=== PATIENT | male | born 1960 | race Caucasian/White ===

== ENCOUNTER 2018-02-16 16:25 | Outpatient (REF) | payer BC, SELFPAY ==
[2018-02-16 21:53] LABS: BUN 24 mg/dL (7-18); Chloride 102 mmol/L (98-107); Glucose 142 mg/dL (70-100); Potassium 4.2 mmol/L (3.5-5.1); Sodium 141 mmol/L (136-145)
[2018-02-16 22:01] LABS: COMMENT (LAB VIEW ONLY) 90.16 mg/dL; Microalb ug/mg Crea 9.5 ug/mg Cr
[2018-02-16 22:30] LABS: ALT 96 U/L (12-78); AST 44 U/L (15-37); Albumin 4.2 g/dL (3.4-5.0); Alkaline Phosphatase 94 U/L (46-116); Anion Gap 13.9 mmol/L (3-11); Bilirubin, Total 0.5 mg/dL (0.2-1.0); CO2 25.1 mmol/L (21.0-32.0); CREATININE 1.11 mg/dL (0.70-1.30); Cholesterol 176 mg/dL (50-200); HDL Cholesterol 49 mg/dL (40-60); LDL CHOLESTEROL 99 mg/dL (<100); Total Protein 7.2 g/dL (6.4-8.2); Triglyceride 188 mg/dL (30-150)
== END 2018-02-16 16:45 ==
LOC: NCHCN 16:25
PROVIDERS: PCP Family Medicine; Visit Provider Family Medicine
DX: I10 Essential (primary) hypertension (principal); E11.9 Type 2 diabetes mellitus without complications
CPT/HCPCS: 80053; 80061; 83721; 82043; 82570

== ENCOUNTER 2020-01-17 16:33 | Outpatient (REF) | payer OTHER, SELFPAY ==
[2020-01-17 18:57] LABS: ALT 53 U/L (16-63); AST 31 U/L (15-37); Albumin 4.2 g/dL (3.4-5.0); Alkaline Phosphatase 97 U/L (46-116); Anion Gap 7.9 mmol/L (3-11); BUN 20 mg/dL (7-18); Bilirubin, Total 0.8 mg/dL (0.2-1.0); CO2 30.1 mmol/L (21.0-32.0); CREATININE 1.25 mg/dL (0.70-1.30); Calcium 9.3 mg/dL (8.5-10.1); Calculated LDL 91 mg/dL (<100); Chloride 100 mmol/L (98-107); Cholesterol 203 mg/dL (<200); Estimated GFR 59.32 (mL/min/1.73m2); Glucose 114 mg/dL (74-106); HDL Cholesterol 50 mg/dL (40-60); Sodium 138 mmol/L (136-145); Total Protein 7.4 g/dL (6.4-8.2); Triglyceride 313 mg/dL (<150)
[2020-01-17 18:59] LABS: COMMENT (LAB VIEW ONLY) 166.02 mg/dL; Microalb ug/mg Crea 25.1 ug/mg Cr
== END 2020-01-17 16:53 ==
LOC: NCHCN 16:33
PROVIDERS: PCP Family Medicine; Visit Provider Family Medicine
DX: I10 Essential (primary) hypertension (principal); E11.9 Type 2 diabetes mellitus without complications; E78.5 Hyperlipidemia, unspecified
CPT/HCPCS: 80053; 80061; 82043; 82570

== ENCOUNTER 2020-08-28 17:30 | Outpatient (REF) | payer OTHER, SELFPAY ==
--- NOTE | 2020-08-28 09:45 | SKI_PTH ---
PATIENT: Masoud Harmon LOC: [facility] U#:[id number] AGE/SX: 59/M ROOM: RE08/28/[address]: Delia Murray : 1960 BED: DIS: 08/28/2020 SPEC #: [id number] RECD: 08/31/20 12:36 STATUS: ANIA RENoreen #: [id number] STEVEN: 08/28/20 09:[address]: Delia Murray DEPT: Surgical Specimen RECD BY: Enma Rehman Tissues: 1 - SKIN BIOPSY(SHAVE/PUNCH) Procedures: SKIN LEVEL 4 Comments: [id number]
== END 2020-08-28 17:31 | disposition home or self-care (01) ==
LOC: NCHCN 17:30
PROVIDERS: PCP Family Medicine; Visit Provider Family Medicine
DX: D22.5 Melanocytic nevi of trunk (principal)
CPT/HCPCS: 88305

== ENCOUNTER 2021-02-26 09:27 | Outpatient (REF) | payer OTHER, SELFPAY ==
--- OUTSIDE RECORDS SUMMARY | 2021-02-26 09:32 | XMS_ITS ---
:1960 Author Care Team Providers Name Role Phone DELIA CLARKE MD Primary Care Provider [phone] Allergies Code Code System Name Reaction Severity Status Onset NKDA ? Medications Name Status Start Date Stop Date ? ? amlodipine 10 mg tablet Active ? Not avai lable aspirin 81 mg tablet,delayed release Active ? Not available gabapentin 100 mg capsule Active ? Not av ailable TAKE 2 TO 3 CAPSULES BY MOUTH THREE NAZARIO ES DAILY NEEDED. START WITH 1 CAPSULE BUT. INCREASE TO 2-3 NEEDED lisinopril 20 mg-hydrochlorothiazide 12.5 Active ? Not available mg tablet omeprazole 20 mg capsule,delayed release Active ? Not available OneTouch Verio test strips Active ? Not a vailable prednisone 20 mg tablet Active ? Not avai lable TAKE 2 TABLETS BY MOUTH EVERY DAY TRUEplus Pen Needle 32 gauge x 5/32 Active ? Not available Notes: Pt also on CPAP for sleep apnea Pt states they prescribed trulicity ,but he cannot afford it. Problems Name Status Onset Date Source ? Type 2 Diabetes Mellitus Active 06/10/2019 ? Hyperlipidemia Active 06/10/2019 ? Tobacco User Active 06/10/2019 ? Essential Hypertension Active 06/10/2019 ? Psoriasis Active 06/10/2019 ? Sleep Apnea Active 06/10/2019 ? Procedures Date Name Performed by ? ? Hernia Repair Information not avai lable Results Lab Results Date Name Specimen Result Interpretation Description Value Range Status Address ? 06/10/2019 Urinalysis, UR ? UA-color pale pale Final [facility] Dipstick, yellow yellow Hospita l Lab [facility] (Int ernal): [address] ? ? UR ? UA-appear clear clear Final [facility] (Internal) : [address] ? ? UR ? UA-spec 1.010 1.003-1.03 Final [place] [address] [facility] L [facility] (Internal) : [address] ? ? UR ? UA-pH 6.5 [pH] 4.6-8.0 Final [facility] [pH] Hospital [facility] (Internal) : [address], [place] ? ? UR ? UA-leuk negative negative Final [facility] (Internal) : [address], [place] ? ? UR ? [facility]-nitrit [facility] [address], [place] ? ? UR ? UA-prot negative negative Final [facility] (Internal) : [address], [place] ? ? UR ? UA-gluc negative negative Final [facility] (Internal) : [address], [place] ? ? UR ? [facility]-ketone negative negative [facility] [address], [place] ? ? UR ? UA-urobil normal normal Final [facility] (Internal) : [address], [place] ? ? UR ? UA-bili negative negative Final [facility] (Internal) : [address], [place] ? ? UR ? UA-blood negative negative Final [facility] (Internal) : [address], [place] Past Encounters 02/01/2021 Lumbar Spondylosis; Low Back Pain; Muscl e Weakness; Abnormal Posture Delia Gonzalez, PT: [address] [place] [address], [facility] [address] [address], Ph. 01/01/2021 Lumbar Spondylosis; Low Back Pain; Muscl e Weakness; Abnormal Posture Delia Gonzalez, PT: [address] [facility], [facility] [address], [place] [address], Ph. Social History Tobacco Smoking Status Current Every Day Smoker Vaccine List Vaccine Type COVID-19, mRNA, LNP-S, PF, 100 mcg/0.5 m L dose 08/06/2020?100 mcg 09/03/2020?0.5 mL Plan of Care Reminders Provider Appointments None ? ? recorded. Lab None ? ? recorded. Referral None ? ? recorded. Procedures None ? ? recorded. Surgeries None ? ? recorded. Imaging None ? ? recorded. Vitals None recorded.
--- OUTSIDE RECORDS SUMMARY | 2021-02-26 09:32 | XMS_ITS | Encounter Summary ---
:1960 Author Care Team Providers Name Role Phone Delia Murray MD Primary Care Provider [phone] Reason for Visit low back pain Assessment and Plan 1. Lumbar spondylosis 2. Low back pain 3. Muscle weakness 4. Abnormal posture Discussion Note: None recorded.Patient educational handouts: No information available. Plan of Care Reminders Provider Appointments None ? ? recorded. Lab None ? ? recorded. Referral None ? ? recorded. Procedures None ? ? recorded. Surgeries None ? ? recorded. Imaging None ? ? recorded. Medications Name Start Date ? ? amlodipine 10 mg tablet ? aspirin 81 mg tablet,delayed release ? gabapentin 100 mg capsule ? TAKE 2 TO 3 CAPSULES BY MOUTH THREE NAZARIO ES DAILY NEEDED. START WITH 1 CAPSULE BUT. INCREASE TO 2-3 NEEDED lisinopril 20 mg-hydrochlorothiazide 12.5 mg tablet ? omeprazole 20 mg capsule,delayed release ? OneTouch Verio test strips ? prednisone 20 mg tablet ? TAKE 2 TABLETS BY MOUTH EVERY DAY TRUEplus Pen Needle 32 gauge x 5 ? Notes: Pt also on CPAP for sleep apnea Pt states they prescribed trulicity ,but he cannot afford it. Medications Administered None recorded. Vitals None recorded. Results Lab Results None recorded. Allergies Code Code System Name Reaction Severity Onset NKDA ? ? ? Problems Name Status Onset Date Source ? Type 2 Diabetes Mellitus Active 06/10/2019 ? Hyperlipidemia Active 06/10/2019 ? Tobacco User Active 06/10/2019 ? Essential Hypertension Active 06/10/2019 ? Psoriasis Active 06/10/2019 ? Sleep Apnea Active 06/10/2019 ? Procedures Date Name Performed by ? ? Hernia Repair Information not avai lable Vaccine List Vaccine Type COVID-19, mRNA, LNP-S, PF, 100 mcg/0.5 m L dose 08/06/2020?100 mcg 09/03/2020?0.5 mL Social History Tobacco Smoking Status Current Every Day Smoker What is your level of alcohol Moderate consumption? Do you or have you ever used Current user of electronic No earl: occasional e-cigarettes or vape? cigarettes Do you have an advanced N directive? Do you feel safe at home? Y Have you used IV drugs? N Do you or have you ever used Never used smokeless tobacco smokeless tobacco? What is your code status? 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 Functional Status Unknown. Past Encounters 02/01/2021 Lumbar Spondylosis; Low Back Pain; Muscl e Weakness; Abnormal Posture Delia Gonzalez, PT: [address] [facility] [address], [place] [address], Ph. 01/01/2021 Lumbar Spondylosis; Low Back Pain; Muscl e Weakness; Abnormal Posture Delia Gonzalez, PT: [address] [facility] [address], [place] [address], Ph. History of Present Illness None recorded. Review of Systems None recorded. Physical Exam ? COUNTS INCLUDE 234 BEDS AT THE [facility] Rehab Discharge Summary (non patient visit) Reported By: Patient Rehab Discharge Summary: Therapy Diagnosis ; Back gael n. Therapy Summary number of sessions:1, Summary of treat ment:. Reason for Discharge Patient no showed for remain ing sessions. Therapy Assessment ; Eval on 01/01/2021: 60-year -old male referred with acute on chronic low back pain, stemm ing from injury on November 28, 2020. Patient lifted a hotel door independently and felt immediate increase in low ba ck pain with pain radiating to the right. Patient reports t hat this is the same distribution of pain that he had prior to his lumbar surgery 2 years ago and the same [facility] hanism of injury. Past medical history significant for 2018 back surgery for L3/L4 compressed disc, HTN, HLP, s leep apnea, tobacco user, and DM II. Patient presents today w ith reports that the use of medications including gabape ntin and ibuprofen, have helped reduce his pain to his previ ous baseline. Patient reports that most ADLs are at previo us baseline. Patient is still on some limited work restrictio ns, which include no lifting over 30 pounds. Given patien t's history of back pain and back surgery; he likely shou ld try to avoid lifting more than that anyway. Patient pr esents with good basic trunk range of motion, without inc reased pain reported. Patient with some decreased core str ength, as evidenced by difficulty with performing a bridge and tenting of the rectus. Patient may benefit from short-term physical therapy intervention to educate him on flexibility and stability exercises, in efforts to hop efully prevent reinjury and possibly improve baseline pa in.Patient no showed for his follow-up appointment on 01/06. It has been over 30 days since patient was seen in [facility] and D/C of chart is appropriate at this time. Go al Status: ; Unable to assess, as patient did not complete course of care. Discharge Plan: discharge from therapy today
--- OUTSIDE RECORDS SUMMARY | 2021-02-26 09:32 | XMS_ITS | Encounter Summary ---
:1960 Author Care Team Providers Name Role Phone Delia Murray MD Primary Care Provider [phone] Reason for Visit low back pain Assessment [...] 2 TO 3 CAPSULES BY MOUTH THREE WILNER ES DAILY NEEDED. START WITH 1 CAPSULE [...] code status? 0 What is your occupation? As[employer] Have you fallen in the last 3 N months? Functional Status Unknown. Past Encounters 01/01/2021 Lumbar Spondylosis; Low Back Pain; Muscl e Weakness; Abnormal Posture Delia Gonzalez, PT: [address] [place] [address] [address], [place] [address], Ph. History of Present Illness ? [facility] PT Evaluation Reported By: Patient Patient Case History:: Patient Case History ; Warren on November 28, 2020, he was getting inpati ent waiting for others to help with repl acing a hotel door. Reports that he lifted it himself. Reports his back started act ing up right away. States it started with burning pain in his back that radiates to (R) lateral hip and thigh.States it's th e same pain he was having prior to his surg hay 2 years ago. Reports that mechanism of injury prior to back surgery was ex actly the same; he lifted a door by hi mself. States since surgery, he can always feel something in his back and (R) LE, with numbness (R) lateral hip/thi gh. Reports no physical therapy pre or post original injury or surgery. Reports h e is never been a big believer in physi stevie therapy.Was give gabapentin (300 mg, BID) and IBU prn since acute flar e.Reports with med use pain has improved an d is close to baseline. Reports with medic ation use he is able to be at work and f unction.Dr. Delia Murray at [facility] center is PCP Pertinent Past Medical History: Pertinent Past Medical History includes ; HTN, HLP, sleep apnea, tobac co user, DM II, psoriasis Pertinent Past Surgical History: Pertinent Past Surgic al History includes ; June 2018 back surgery f or L3/L4 compressed disc and dx with spinal stenosis at [facility] Dr. [place] Pertinent Medications: Pertinent Medications inclu lizette ; victoza, atorvastatin, jardiance, ASA , metoprolol, lisinopril, amlodipine, omep razole, CPAP machine Prior Therapy/Diagnostics/Treatment:: Prior Diagnostic Results ; X-rays 11/28/20:Lumbar: There is darline rowing of the disc spaces diffusely.Endpla te degenerative changes are pre sent. Facet joint hypertrophy ispresent. 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 C urrent Restrictions ; No lifting ov er 30 lbs, no walking/standing for long pe riods of time.Can do all tasks, but h as to have someone work with him for Omnigying and usually does work (I) *Impairment Observations and Tolerance to Previous Lev el of Function ; (I) ADLs. Daily Living:: Chronic tingling (B) feet an d numbness (R) thigh. Chronic LBP that coul d limit walking/standing abilities. Current Level of Function ; States with ga bapentin use, ADLs are close to baseline.S alicia more pain in the morning than baseline ; is a side sleeper as baseline Pain Description:: Pain (location, nature, beha vior severity) ; LBP and (R) lateral hip pa in; stopping before kneetightness, sharp/ shooting pains at timemeds help, no help wi th heat or iceAt worst: 6/10At best: 4/ 10Reports baseline since surgery in , was 4/10 at best Review of Systems None recorded. Physical Exam ? [facility] Lumbar Spine, [facility] PT Assessment and Plan Reported By: Patient Lumbar Spine Palpation: Palpation ; TIght/tender (B) lumbar paraspinals and inf QL; equally. No tend erness lateral thigh Lumbar Spine Flexion/Extension AROM: Flexion/Extensio n inclinometer ? flexion: 50 degrees, inclinometer - exte nsion: 30 degrees; tight into flex and pulling ant hips into ext, no c/o increased pain Lumbar Spine Rotation AROM: Rotation tape measure ? ri ght:10 cm, tape measure ? left:10 cm; Increa sed pain central spine, especially ROT to (L) Lumbar Spine Side Bending AROM: Side Bending inclinome ter - right:30 degrees, inclinometer - left:25 degre es; No pain increase reported Core/Abdominal Strength: Strength ; Not officially te sted.PT notes significant proximal abdomin al tenting, likely indicating rectus diastases Posture: Postural Deviations: ; FHP, increased kyphosis, decreased lordosis, level pe lvis Gait: Gait Deviations ; Within nor mal limits.Patient is noted to be able to heel and toe walk without difficulties *Patient Education: Patient Education Provided T tien ; PT findings and course of care. Patient was educated on HEP as below. Patient was educat ed that physical therapy's goal is to increas e flexibility and stability of his trunk, in e fforts to help him with management of his acute on chronic low back pain *Physical Therapy Assessment: Physical Therapy Assessm ent ; 60-year-old male referred with acute on chron ic low back pain, stemming from injury on November 28, 2020. Patient lifted a hotel door independ ently and felt immediate increase in low ba ck pain with pain radiating to the right. Mary Anne ent reports that this is the same distributio n of pain that he had prior to his lumbar surg hay 2 years ago and the same mechanism of injury .Past medical history significant for 2018 back surgery for L3/L4 compressed disc, HTN, HLP, sleep apnea, tobacco user, a nd DM II.Patient presents today with reports that the use of medications including gabape ntin and ibuprofen, have helped reduce his pain to his previous baseline. Patient reports th at most ADLs are at previous baseline. Patient i s still on some limited work restrictions, w hich include no lifting over 30 pounds. Give n patient's history of back pain and back surger y; he likely should try to avoid lifting more th an that anyway.Patient presents with good basic trunk range of motion, without inc reased pain reported. Patient with some decreased core strength, as evidenced by di fficulty with performing a bridge and tent ing of the rectus.Patient may benefit f rom short-term physical therapy interventio n to educate him on flexibility and stability ex ercises, in efforts to hopefully prevent reinjur y and possibly improve baseline pain. Rehab Potential: fair rehab potential to reach th e established goals Functional Outcome Measure (FOM): Patient was assessed using the following Functional Outcome Measure ( FOM): Modified Oswestry Disability Index Short Term Goal(s): STGs Deferred: STGs deferred to LTGs Clother In Goal(s): Correction Goals (including t kevin frames) ; 4 weeks:1. No increase in low back pain reports with HEP compliance, at leas t 3/7 days a week for improved trunk flexibili ty and stability in efforts to prevent reinjury Patient Goal(s): Patient Goal (s): ; To retur n to full work duties Frequency: Treatment frequency: one wilner e every 2, week(s) 2, week(s) Intensity: Treatment Intensity: 45 min Duration: Treatment duration: 4 week( s) Planned Treatment Interventions: PT Charge Code 94016: therapeutic exercises, 54814: manual therapy; Patie nt education on proper body mechanics Discharge Plan: Discharge Plan: upon achievi ng goals or maximal benefit of therapy services *Time: Time In: ; 9:40 AM. Time Out : ; 10:30 AM. Total Time: ; 50 minutes. Dictatio n: This document was dictated utilizing voice recognition software and may contain ruth dvertent errors
[2021-02-26 16:32] LABS: COMMENT (LAB VIEW ONLY) 109.29 mg/dL; Microalb ug/mg Crea 31.8 ug/mg Cr
== END 2021-02-26 09:28 | disposition home or self-care (01) ==
LOC: NCHCN 09:27
PROVIDERS: PCP Family Medicine; Visit Provider Family Medicine
DX: E11.8 Type 2 diabetes mellitus with unspecified complications (principal); R80.9 Proteinuria, unspecified
CPT/HCPCS: 82043; 82570

== ENCOUNTER 2021-07-26 09:19 | Outpatient (REF) | payer OTHER, SELFPAY ==
[2021-07-26 21:28] LABS: Hemoglobin A1C 6.4 % (<5.7)
[2021-07-26 21:31] LABS: ALT 34 U/L (16-63); AST 21 U/L (15-37); Albumin 4.4 g/dL (3.4-5.0); Alkaline Phosphatase 87 U/L (46-116); Anion Gap 11.2 mmol/L (3-11); BUN 23 mg/dL (7-18); Bilirubin, Total 1.1 mg/dL (0.2-1.0); CO2 26.8 mmol/L (21.0-32.0); CREATININE 0.9 mg/dL (0.70-1.30); Calcium 9.6 mg/dL (8.5-10.1); Calculated LDL 134 mg/dL (<100); Chloride 99 mmol/L (98-107); Cholesterol 207 mg/dL (<200); Glucose 116 mg/dL (74-106); HDL Cholesterol 54 mg/dL (40-60); Potassium 4.2 mmol/L (3.5-5.1); Sodium 137 mmol/L (136-145); Total Protein 7.8 g/dL (6.4-8.2); Triglyceride 99 mg/dL (<150)
== END 2021-07-26 09:20 | disposition home or self-care (01) ==
LOC: NCHCN 09:19
PROVIDERS: PCP Family Medicine; Visit Provider Family Medicine
DX: E11.8 Type 2 diabetes mellitus with unspecified complications (principal); I10 Essential (primary) hypertension; E78.5 Hyperlipidemia, unspecified; E66.9 Obesity, unspecified; L40.9 Psoriasis, unspecified
CPT/HCPCS: 80053; 80061; 83036

== ENCOUNTER 2022-05-04 13:33 | Outpatient (REF) | payer OTHER, SELFPAY ==
[2022-05-04 21:44] LABS: COMMENT (LAB VIEW ONLY) 80.58 mg/dL; Microalb ug/mg Crea 39.1 ug/mg Cr
== END 2022-05-04 13:34 | disposition home or self-care (01) ==
LOC: NCHCN 13:33
PROVIDERS: PCP Family Medicine; Visit Provider Family Medicine
DX: E11.8 Type 2 diabetes mellitus with unspecified complications (principal)
CPT/HCPCS: 82043; 82570

== ENCOUNTER 2022-12-21 12:13 | Outpatient (REF) | payer BC, SELFPAY ==
[2022-12-21 16:30] LABS: Anion Gap 13.2 mmol/L (3-11); BUN 30 mg/dL (7-18); CO2 24.8 mmol/L (21.0-32.0); CREATININE 1.3 mg/dL (0.70-1.30); Calcium 9.7 mg/dL (8.5-10.1); Calculated LDL 111 mg/dL (<100); Chloride 102 mmol/L (98-107); Cholesterol 226 mg/dL (<200); Glucose 136 mg/dL (74-106); HDL Cholesterol 51 mg/dL (40-60); Potassium 4.6 mmol/L (3.5-5.1); Sodium 140 mmol/L (136-145); Triglyceride 324 mg/dL (<150)
== END 2022-12-21 12:14 | disposition home or self-care (01) ==
LOC: NCHCN 12:13
PROVIDERS: PCP Family Medicine; Visit Provider Family Medicine
DX: Z00.00 Encounter for general adult medical examination without abnormal findings (principal); E78.5 Hyperlipidemia, unspecified; E88.81 Metabolic syndrome and other insulin resistance; Z91.89 Other specified personal risk factors, not elsewhere classified
CPT/HCPCS: 80048; 80061

== ENCOUNTER 2023-05-02 09:09 | Outpatient (REF) | payer BC, SELFPAY ==
[2023-05-02 21:07] LABS: Hemoglobin A1C 6.5 % (<5.7)
[2023-05-02 21:09] LABS: ALT 24 U/L (16-63); AST 17 U/L (15-37); Albumin 3.8 g/dL (3.4-5.0); Alkaline Phosphatase 90 U/L (46-116); Anion Gap 7.4 mmol/L (3-11); BUN 27 mg/dL (7-18); Bilirubin, Total 0.6 mg/dL (0.2-1.0); CO2 27.6 mmol/L (21.0-32.0); CREATININE 1.4 mg/dL (0.70-1.30); Calcium 9.9 mg/dL (8.5-10.1); Chloride 101 mmol/L (98-107); Estimated GFR 57.18 (mL/min/1.73m2); Glucose 117 mg/dL (74-106); Potassium 4.7 mmol/L (3.5-5.1); Sodium 136 mmol/L (136-145); Total Protein 7.4 g/dL (6.4-8.2)
== END 2023-05-02 09:10 ==
LOC: NCHCN 09:09
PROVIDERS: PCP Family Medicine; Visit Provider Family Medicine
DX: E11.9 Type 2 diabetes mellitus without complications (principal); I10 Essential (primary) hypertension
CPT/HCPCS: 80053; 83036

== ENCOUNTER 2023-08-23 18:01 | Outpatient (REF) | payer BC, SELFPAY ==
[2023-08-23 21:40] LABS: COMMENT (LAB VIEW ONLY) 180.88 mg/dL; Microalb ug/mg Crea 11.6 ug/mg Cr
== END 2023-08-23 18:02 | disposition home or self-care (01) ==
LOC: NCHCN 18:01
PROVIDERS: PCP Family Medicine; Visit Provider Family Medicine
DX: E11.8 Type 2 diabetes mellitus with unspecified complications (principal)
CPT/HCPCS: 82043; 82570

== ENCOUNTER 2024-07-01 13:33 | Outpatient (REF) | payer BC, SELFPAY ==
[2024-07-01 21:40] LABS: Anion Gap 9.2 mmol/L (3-11); BUN 17 mg/dL (7-18); CO2 26.8 mmol/L (21.0-32.0); CREATININE 1.3 mg/dL (0.70-1.30); Calcium 10.2 mg/dL (8.5-10.1); Chloride 102 mmol/L (98-107); Estimated GFR 62.11 (mL/min/1.73m2); Glucose 149 mg/dL (74-106); Potassium 4.3 mmol/L (3.5-5.1); Sodium 138 mmol/L (136-145)
== END 2024-07-01 13:34 | disposition home or self-care (01) ==
LOC: NCHCN 13:33
PROVIDERS: PCP Family Medicine; Visit Provider Family Medicine
DX: M79.10 Myalgia, unspecified site (principal)
CPT/HCPCS: 80048

== ENCOUNTER 2024-08-09 11:06 | Outpatient (REF) | payer SELFPAY ==
[2024-08-09 15:37] LABS: COMMENT (LAB VIEW ONLY) 263.83 mg/dL; Microalb ug/mg Crea 13.2 ug/mg Cr
== END 2024-08-09 11:07 | disposition home or self-care (01) ==
LOC: NCHCN 11:06
PROVIDERS: PCP Family Medicine; Visit Provider Family Medicine
DX: E11.9 Type 2 diabetes mellitus without complications (principal)
CPT/HCPCS: 82043; 82570

== ENCOUNTER 2024-12-09 18:42 | Outpatient (REF) | payer BC, SELFPAY ==
[2024-12-09 21:11] LABS: Anion Gap 9.6 mmol/L (3-11); BUN 32 mg/dL (7-18); CO2 26.4 mmol/L (21.0-32.0); Calcium 9.7 mg/dL (8.5-10.1); Chloride 97 mmol/L (98-107); Estimated GFR 56.48 (mL/min/1.73m2); Glucose 133 mg/dL (74-106); Potassium 4.9 mmol/L (3.5-5.1); Sodium 133 mmol/L (136-145)
== END 2024-12-09 18:43 | disposition home or self-care (01) ==
LOC: NCHCN 18:42
PROVIDERS: PCP Family Medicine; Visit Provider Family Medicine
DX: I10 Essential (primary) hypertension (principal)
CPT/HCPCS: 80048

== ENCOUNTER 2025-01-08 18:09 | Outpatient (REF) | payer BC, SELFPAY | END 2025-01-08 18:10 | disposition home or self-care (01) | LOC: NCHCN 18:09 | PROVIDERS: PCP Family Medicine; Visit Provider Physician Assistant | DX: R30.0 Dysuria (principal); R82.89 Other abnormal findings on cytological and histological examination of urine | CPT/HCPCS: 87086 ==